=== PATIENT | male | born 2000 | race Caucasian/White ===

== ENCOUNTER 2025-05-31 20:22 | Emergency (ER) | payer MEDICAID ==
[~2025-05-31] VITALS: Ht 172.7 cm; Wt 83.0 kg
[2025-05-31 21:15] VITALS: TEMP 36.7; O2SAT 100
[2025-05-31] MEDS: KETOROLAC 15MG/ML VIAL IM ONE (21:52)
[2025-05-31] MEDS ORDERED: LIDO-53 TP (23:33)
[2025-05-31] MEDS ORDERED: NAPR-1176 MT (23:33)
[2025-06-01 00:02] VITALS: BP 121/77; PULSE 68; RESP 18; O2SAT 100
== END 2025-06-01 00:03 | disposition home or self-care (01) ==
LOC: ER 20:22
DX: S09.8XXA Other specified injuries of head, initial encounter (principal); N50.819 Testicular pain, unspecified; Z79.1 Long term (current) use of non-steroidal anti-inflammatories (NSAID)
CPT/HCPCS: 93976; 76870; 96372; 99285; J1885; Z7610

== ENCOUNTER 2025-06-09 18:17 | Emergency (ER) | payer MEDICAID ==
[~2025-06-09] VITALS: Ht 170.2 cm; Wt 83.0 kg
[~2025-06-09 18:17] MED LIST: LIDO-53 TP; NAPR-1176 MT
[2025-06-09 18:25] VITALS: O2SAT 99
[2025-06-09] MEDS: KETOROLAC 15MG/ML VIAL IM ONE (21:19)
[2025-06-09] MEDS ORDERED: IBUP-2028 MT (22:39)
[2025-06-09] MEDS ORDERED: BO1 TP (22:49)
[2025-06-09 23:43] VITALS: BP 125/72; PULSE 65; RESP 14; TEMP 36.9; O2SAT 99
== END 2025-06-09 23:44 | disposition home or self-care (01) ==
LOC: ER 18:17
DX: S40.212A Abrasion of left shoulder, initial encounter (principal); S00.81XA Abrasion of other part of head, initial encounter; S89.81XA Other specified injuries of right lower leg, initial encounter; S99.811A Other specified injuries of right ankle, initial encounter; Z98.890 Other specified postprocedural states; X58.XXXA Exposure to other specified factors, initial encounter; Y93.89 Activity, other specified; Y92.89 Other specified places as the place of occurrence of the external cause; Y99.8 Other external cause status
CPT/HCPCS: 99285; 70450; 73562; 73610; 73620; 96372; J1885; A6449